=== PATIENT | male | born 1960 | race Caucasian/White ===

== ENCOUNTER 2019-06-03 10:30 | Outpatient (CLI) | payer OTHER, SELFPAY ==
[2019-06-03 11:13] LABS: Basophils Absolute Auto 0.1 K/mm3 (0.0-0.1); Basophils Percent Auto 0.7 % (0.2-1.2); Eosinophils Absolute Auto 0.4 K/mm3 (0-0.3); Eosinophils Percent Auto 4.4 % (0-4.4); Hemoglobin 15.8 g/dL (14.0-18.0); Immature Granulocyte Absolute 0.06 K/mm3 (0.00-0.031); Immature Granulocyte Percent A 0.7 % (0-0.5); Lymphocytes Absolute Auto 2.72 K/mm3 (0.9-3.2); Lymphocytes Percent Auto 30.5 % (18.3-44.2); Mean Corpuscular HGB Conc 32.9 g/dl (32-36); Mean Corpuscular Hemoglobin 30.7 pg (26-34); Mean Corpuscular Volume 93.4 fl (80-100); Monocytes Absolute Auto 0.7 K/mm3 (0.1-0.6); Monocytes Percent Auto 7.6 % (2.6-8.5); Neutrophils Percent Auto 56.1 % (45.5-73.1); Platelet Count Result 249 k/mm3 (150-375); Red Blood Count 5.14 M/mm3 (4.6-6.20); Red Cell Distribution Width 13.1 % (11.5-14.5); White Blood Count 8.9 K/mm3 (4.5-10.0)
[2019-06-03 11:26] LABS: Prothrombin Time 13.3 Seconds (11.1-14.7)
[2019-06-03 11:27] LABS: Alanine Aminotransferase 20 U/L (4-50); Albumin Level 4.4 g/dL (3.5-5.1); Alkaline Phosphatase 94 U/L (38-126); Aspartate Amino Transferase 24 U/L (17-59); Blood Urea Nitrogen 15 mg/dL (9-20); Calcium 8.9 mg/dL (8.4-10.2); Carbon Dioxide 29 mmol/L (22-30); Chloride 98 mmol/L (98-107); Estimated Glomerular Filt Rate > 60; Glucose 110 mg/dL (75-110); Sodium 138 mmol/L (137-145)
== END 2019-06-03 10:31 | disposition home or self-care (01) ==
PROVIDERS: Visit Provider Internal Medicine Cardiovascular Disease
DX: Z01.818 Encounter for other preprocedural examination (principal); I25.5 Ischemic cardiomyopathy; I25.118 Atherosclerotic heart disease of native coronary artery with other forms of angina pectoris
CPT/HCPCS: 36415; 80053; 85025; 85610

== ENCOUNTER 2019-09-24 10:43 | Outpatient (CLI) | payer OTHER, SELFPAY ==
[2019-09-24 12:13] LABS: Blood Urea Nitrogen 23 mg/dL (9-20); Carbon Dioxide 32 mmol/L (22-30); Chloride 94 mmol/L (98-107); Estimated Glomerular Filt Rate > 60; Glucose 147 mg/dL (75-110); Potassium 3.9 mmol/L (3.4-5.0); Sodium 133 mmol/L (137-145)
== END 2019-09-24 10:44 | disposition home or self-care (01) ==
PROVIDERS: Visit Provider Nurse Practitioner Adult Health
DX: I50.22 Chronic systolic (congestive) heart failure (principal)
CPT/HCPCS: 36415; 80048

== ENCOUNTER 2019-10-14 09:56 | Outpatient (CLI) | payer OTHER, SELFPAY ==
--- NOTE | ~2019-10-14 | CT_ITS ---
EXAMINATION:CT lung screening DATE: 10/14/2019 10:21 INDICATION: Personal history of tobacco dependence. Current smoker with 30 pack year history. TECHNIQUE: Computed tomography (CT) of the chest was performed without intravenous contrast. Automate d exposure control and iterative reconstruction technique were employed. The dose-length product (DLP ) was 280.81 mGy-cm. COMPARISON: Chest CT 03/19/2018 FINDINGS: There are widespread chronic groundglass opacities in the lungs with an upper lung predomin ance. The differential diagnosis includes chronic hypersensitivity pneumonitis and desquamative inter stitial pneumonia (DIP). There are a few bilateral pulmonary nodules measuring up to 5 mm in right up per lobe without change. A calcified left lung nodule is consistent with old granulomatous disease. N o pleural effusion. The heart size is normal. There are coronary artery calcifications. No pericardia l effusion. There is mild thoracic spondylosis. IMPRESSION: 1. Lung-RADS category 2: Benign appearance or behavior. Continue annual screening with noncontrast lo w-dose chest CT in 12 months. Reviewed, dictated and finalized at location A. IMPRESSION: 1. Lung-RADS category 2: Benign appearance or behavior. Continue annual screeni ng with noncontrast low-dose chest CT in 12 months.
== END 2019-10-14 09:57 | disposition home or self-care (01) ==
PROVIDERS: Visit Provider Nurse Practitioner Family
DX: Z12.2 Encounter for screening for malignant neoplasm of respiratory organs (principal); Z87.891 Personal history of nicotine dependence
CPT/HCPCS: G0297

== ENCOUNTER 2019-11-16 10:18 | Outpatient (CLI) | payer OTHER, SELFPAY ==
--- NOTE | ~2019-11-16 | CT_ITS ---
EXAMINATION:CT lung screening DATE: 11/16/2019 10:46 INDICATION: Personal history of tobacco dependence. Current smoker with 40 pack year history. TECHNIQUE: Computed tomography (CT) of the chest was performed without intravenous contrast. Automate d exposure control and iterative reconstruction technique were employed. The dose-length product (DLP ) was 378.21 mGy-cm. COMPARISON: Chest CT 10/14/2019 FINDINGS: Lung volumes are normal. Again seen are widespread groundglass opacities in the lungs with an upper lung predominance. The differential diagnosis includes chronic hypersensitivity pneumonitis and desquamative interstitial pneumonia (DIP). There are a few nodules in the upper lobes measuring u p to 4 mm in right upper lobe without change. No pleural effusion. The heart size is normal. There ar e coronary artery calcifications. There is a left chest pacer with leads in right atrium, right ventr icle, and coronary sinus. There is chronic mild mediastinal lymphadenopathy, likely reactive. There i s bilateral gynecomastia. There is mild thoracic spondylosis. IMPRESSION: 1. Lung-RADS category 2: Benign appearance or behavior. Continue annual screening with noncontrast lo w-dose chest CT in 12 months. Reviewed, dictated and finalized at location B. IMPRESSION: 1. Lung-RADS category 2: Benign appearance or behavior. Continue annual screeni ng with noncontrast low-dose chest CT in 12 months.
== END 2019-11-16 10:19 | disposition home or self-care (01) ==
PROVIDERS: PCP Internal Medicine Critical Care Medicine; Visit Provider Internal Medicine Critical Care Medicine
DX: Z12.2 Encounter for screening for malignant neoplasm of respiratory organs (principal); Z87.891 Personal history of nicotine dependence
CPT/HCPCS: G0297

== ENCOUNTER 2020-01-22 00:50 | Outpatient (CLI) | payer OTHER, SELFPAY ==
[2020-01-22 17:37] LABS: SARS-CoV-2 RNA PCR Negative
== END 2020-01-22 00:51 | disposition home or self-care (01) ==
LOC: ANHCOVIDDT 00:51
PROVIDERS: Visit Provider Internal Medicine Critical Care Medicine
DX: Z01.812 Encounter for preprocedural laboratory examination (principal); Z20.828 Contact with and (suspected) exposure to other viral communicable diseases
CPT/HCPCS: 87635; C9803; U0003

== ENCOUNTER 2020-01-25 11:03 | Outpatient (CLI) | payer OTHER, SELFPAY ==
--- NOTE | 2020-02-22 12:09 | WPDSLEEPSTUD ---
Sleep Study Date of Study: 01/25/20 Ordering Provider: Donta Gomez APRN Interpreting Physician: Kaylynn Louis MD Sleep Study Type: CPAP Titration Height: 1.6 m Weight: 101.605 kg Body Mass Index: 39.6 Neck Circumference: 43.18 cm [place]: 7 Reason for Sleep Study VITO Split night study on 06/24/2018 shows severe obstructive sleep apnea with AHI 68, multiple oxygen desaturations with inadequate titration with CPAP. Sleep History Apolinar Rawls is a 59-year-old male 63 in tall weighing 235 lb who presents for a CPAP titration. He has a history of COPD, cardiomyopathy, secondary pulmonary arterial hypertension with an RVSP of 75-80 mmHg. His EF is severely decreased 15-20%. He has a pacemaker / ICD. 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 He frequently snores which is loud enough the others complain about it. He occasionally awakens at night with heartburn, belching or coughing. He frequently awakens from sleep feeling short of breath. He rarely has trouble sleeping with a cold, rarely gasps for breath at night, rarely has breathing problems at night reported to him by others. He occasionally sweats excessively at night. He does not notice his heart pounding or beating irregularly at night. He does not fall asleep involuntarily or while driving. He does not have loss of muscle tone was strong emotion. He does not have daytime difficulties due to excessive sleepiness, and does not feel paralyzed on waking or falling asleep. He does not have vivid dreamlike scenes upon awakening or falling asleep. He has never for a to go to sleep. He does not have nightmares. He rarely remembers his dreams. He frequently has racing thoughts. He occasionally feels sad depressed and anxious. He occasionally has muscular tension. He rarely notices parts of his body jerking. He does not kick at night. He occasionally has crawling and aching feelings in his legs. He does not have leg pain during the night. He does not have morning jaw pain and does not grind his teeth during sleep. He occasionally is bothered by pain during the day, rarely is awakened by pain at night. He rarely wakes up feeling stiff in the morning. Does not wake up with sore achy muscles but he does occasionally wake up with pain in the neck and spine. He has dizziness and memory problems. He does not have a fixed bedtime. He wakes up 4-6 times during the night, staying awake for 30 minutes. While awake, he will sit on the side of the bed and try to get comfortable again. He usually wakes up around 6 or 7 in the morning. He denies taking naps. Habits: Tobacco a half pack per day currently smoking. Coffee 2 cups daily. Two cans of soda daily. No alcohol or recreational drugs. [facility] Past Medical History Medical History CAD (coronary artery disease) Cardiomyopathy Chronic respiratory failure with hypoxia COPD (chronic obstructive pulmonary disease) Hypersomnia Pulmonary arterial hypertension Tobacco abuse Family History Family History Mother Hypertension Diabetes mellitus Father Family history of congestive heart failure Diabetes mellitus Family history of Alzheimer's disease Social History Social History Smoking packs per day: 1 Smoking cigarettes per day: 20.0 Years smoked: 40 Smoking pack-years: 40.00 Smoking status: Current every day smoker Medications Home Medications Medication Instructions Recorded Confirmed Type aspirin 81 mg tablet,delayed 81 mg PO DAILY 09/10/19 09/29/19 History release atorvastatin 40 mg tablet 40 mg PO DAILY 09/10/19 09/29/19 History carvedilol 3.125 mg tablet 3.125 mg PO Q12H 09/10/19 09/29/19 History furosemide 40 mg tablet 40 mg PO QAM 09/10/19 09/29/19 History pantoprazole 40 mg ta
[2020-02-23 16:05] VITALS: BMI 39.6
== END 2020-01-25 11:04 ==
LOC: ANHCSM 03-29 11:03
PROVIDERS: Visit Provider Nurse Practitioner Family
DX: G47.33 Obstructive sleep apnea (adult) (pediatric) (principal)
CPT/HCPCS: 95811

== ENCOUNTER 2020-06-07 12:24 | Outpatient (CLI) | payer OTHER, SELFPAY ==
[2020-06-07 13:10] LABS: Alanine Aminotransferase 27 U/L (4-50); Albumin Level 4.5 g/dL (3.5-5.1); Alkaline Phosphatase 97 U/L (38-126); Anion Gap 6 mmol/L (8-16); Aspartate Amino Transferase 25 U/L (17-59); Bilirubin,Total 0.7 mg/dL (0.2-1.3); Blood Urea Nitrogen 16 mg/dL (9-20); Calcium 9.1 mg/dL (8.4-10.2); Carbon Dioxide 30 mmol/L (22-30); Chloride 102 mmol/L (98-107); Cholesterol 142 mg/dL (0-200); Estimated Glomerular Filt Rate > 60; Glucose 97 mg/dL (75-110); HDL Direct 34 mg/dL; Magnesium 1.9 mg/dL (1.6-2.3); Sodium 138 mmol/L (137-145); Triglycerides 166 mg/dL (<150)
[2020-06-07 13:21] LABS: LDL Cholesterol Direct 75 mg/dL
== END 2020-06-07 12:25 | disposition home or self-care (01) ==
PROVIDERS: Visit Provider Internal Medicine Cardiovascular Disease
DX: E78.5 Hyperlipidemia, unspecified (principal)
CPT/HCPCS: 36415; 80053; 80061; 83735

== ENCOUNTER 2020-06-28 06:38 | Outpatient (CLI) | payer OTHER, SELFPAY ==
--- NOTE | 2020-06-28 06:48 | ECHO_ITS ---
Patient Info Name: Apolinar Rawls Age: 59 years : 1960 Gender: Male Ht: 63 in Wt: 229 lbs BSA: 2.20 m2 HR: 73 bpm BP: 114 / 71 mmHg Heart Rhythm: Sinus Rhythm Exam Date: 06/28/2020 7:25 AM Exam Location: [facility] Patient Status: Outpatient Admit Date: 06/28/2020 Staff Ordering Physician: Rakan Paris DO Mat Maker: Margie Vicente RDCS Attending Provider: Rakan Paris DO Exam Type: CA echo dop color flow w con Study Info Indications I42.9 - Cardiomyopathy, unspecified Complete two-dimensional, color flow and Doppler transthoracic echocardiogram is performed with contrast to opacify the left ventricle and to improve the deliniation of the left ventricle endocardial borders. Contrast/Agitated Saline Contrast/Ag. Saline: Definity Amount: 40.00 ml Administered By: Norma Escobedo RN New IV Access: Right and Dorsum of Hand Site Condition: Site dressing applied and IV removed Summary 1. Left ventricular chamber dimension is severely enlarged. 2. Definity contrast administered improved wall motion interpretation. 3. Left ventricular systolic function is severely reduced, estimated at 15-20%. 4. The left ventricular diastolic function is grade I diastolic dysfunction. 5. E/e' 18 is elevated. 6. Linear artifact in right ventricle suggestive of catheter(s), pacemaker lead(s), or ICD lead(s). 7. Linear artifact in the right atrium suggestive of catheter(s), pacemaker lead(s), or ICD lead(s). 8. There is trace mitral valve regurgitation. Left Ventricle E/e' 18 is elevated. Definity contrast administered improved wall motion interpretation. Left ventricular chamber dimension is severely enlarged. Left ventricular systolic function is severely reduced, estimated at 15-20%. The left ventricular diastolic function is grade I diastolic dysfunction. Right Ventricle Linear artifact in right ventricle suggestive of catheter(s), pacemaker lead(s), or ICD lead(s). Right ventricular chamber dimension is normal. Right ventricular systolic function is normal. Left Atria Left atrial chamber dimension is normal. Right Atria Linear artifact in the right atrium suggestive of catheter(s), pacemaker lead(s), or ICD lead(s). Right atrial chamber dimension is normal. Aortic Valve The aortic valve is trileaflet. There is no aortic valve stenosis. There is no aortic valve regurgitation. Pulmonic Valve There is no pulmonic regurgitation. Mitral Valve There is no mitral valve stenosis. There is trace mitral valve regurgitation. Tricuspid Valve There is no tricuspid valve regurgitation. Pericardium/Pleural There is no pericardial effusion. Inferior Vena Cava Normal inferior vena cava with >50% collapse upon inspiration consistent with normal right atrial pressure, 5 mmHg. Aorta The aortic root size at the sinus of Valsalva is not well visualized. Left Ventricular Outflow Tract Name Value Normal LVOT 2D LVOT Diameter 1.89 cm LVOT Doppler LVOT Peak Gradient 3 mmHg LVOT Mean Gradient 1 mmHg
== END 2020-06-28 06:39 | disposition home or self-care (01) ==
PROVIDERS: Visit Provider Internal Medicine Cardiovascular Disease
DX: I42.9 Cardiomyopathy, unspecified (principal)
CPT/HCPCS: C8929

== ENCOUNTER 2020-06-28 16:02 | Outpatient (CLI) | payer OTHER, SELFPAY ==
[2020-06-28 08:45] VITALS: PULSE 84; O2SAT 86
[2020-06-28 08:50] VITALS: PULSE 86; O2SAT 88
[2020-06-28 08:55] VITALS: PULSE 85; O2SAT 90
[2020-06-28 09:00] VITALS: PULSE 98; O2SAT 88
[2020-06-28 09:05] VITALS: PULSE 100; O2SAT 90
[2020-06-28 09:20] VITALS: PULSE 84; O2SAT 90
== END 2020-06-28 16:03 | disposition home or self-care (01) ==
LOC: ANHPFT 08-24 16:05
PROVIDERS: Visit Provider Nurse Practitioner Family
DX: J44.9 Chronic obstructive pulmonary disease, unspecified (principal); R06.02 Shortness of breath
CPT/HCPCS: 94618

== ENCOUNTER 2020-11-16 08:21 | Outpatient (CLI) | payer OTHER, SELFPAY ==
--- NOTE | ~2020-11-16 | CT_ITS ---
EXAMINATION: CT lung screening DATE: 11/16/2020 08:46 INDICATION: Personal history of nicotine dependence, current smoker with 40 pack year history TECHNIQUE: Computed tomography (CT) of the chest was performed without intravenous contrast. The dose -length product (DLP) was 405.95 mGy-cm. Automated exposure control and iterative reconstruction tech [employer] were employed. COMPARISON: 11/16/2019 FINDINGS: There are scattered stable nodules in the upper lobes, the largest of which measures 4 mm i n the right upper lobe. There are stable groundglass opacities with an upper lobe predominance. Diffe rential is as previously described including chronic hypersensitivity pneumonitis desquamative inters titial pneumonia (DIP). There is no pleural effusion or pneumothorax. No new lung nodules are identif ied. No pathologically enlarged thoracic lymph nodes are identified. The heart size is normal. Chroni c mild mediastinal lymphadenopathy persists without change, likely reactive. A dual-lead pacemaker of the left chest wall ends with its leads right atrium and right ventricle. Calcified coronary artery atherosclerosis is noted. There is bilateral gynecomastia. IMPRESSION: 1. Lung-RADS category 2: Benign appearance or behavior. Continue annual screening with noncontrast lo w-dose chest CT in 12 months. Reviewed, dictated and finalized at location B. IMPRESSION: 1. Lung-RADS category 2: Benign appearance or behavior. Continue annual screeni ng with noncontrast low-dose chest CT in 12 months.
== END 2020-11-16 08:22 | disposition home or self-care (01) ==
PROVIDERS: Visit Provider Nurse Practitioner Family
DX: Z87.891 Personal history of nicotine dependence (principal)
CPT/HCPCS: 71271

== ENCOUNTER 2021-02-27 11:23 | Outpatient (CLI) | payer OTHER, SELFPAY | END 2021-02-27 11:24 | disposition home or self-care (01) | LOC: ANHLAB 11:25 | PROVIDERS: PCP Internal Medicine Cardiovascular Disease; Visit Provider Physician Assistant | DX: J84.9 Interstitial pulmonary disease, unspecified (principal) | CPT/HCPCS: 36415; 86331; 86606; 86609 ==

== ENCOUNTER 2021-06-15 07:48 | Outpatient (CLI) | payer OTHER, SELFPAY ==
[2021-06-15 08:52] LABS: Alanine Aminotransferase 22 U/L (4-50); Albumin Level 4.2 g/dL (3.5-5.1); Alkaline Phosphatase 77 U/L (38-126); Anion Gap 5 mmol/L (8-16); Aspartate Amino Transferase 26 U/L (17-59); Bilirubin,Total 1.1 mg/dL (0.2-1.3); Blood Urea Nitrogen 16 mg/dL (9-20); Calcium 8.5 mg/dL (8.4-10.2); Carbon Dioxide 31 mmol/L (22-30); Chloride 102 mmol/L (98-107); Cholesterol 118 mg/dL (0-200); Estimated Glomerular Filt Rate > 60; Glucose 129 mg/dL (65-110); HDL Direct 29 mg/dL; Magnesium 2.1 mg/dL (1.6-2.3); Potassium 4.1 mmol/L (3.4-5.0); Sodium 138 mmol/L (137-145); Triglycerides 117 mg/dL (<150)
--- NOTE | 2021-06-15 08:53 | ECHO_ITS ---
Patient Info Name: Apolinar Rawls Age: 60 years : 1960 Gender: Male Ht: 63 in Wt: 238 lbs BSA: 2.25 m2 HR: 68 bpm BP: 112 / 80 mmHg Technical Quality: Poor Exam Date: 06/15/2021 9:12 AM Exam Location: [facility] Patient Status: Outpatient Admit Date: 06/15/2021 Staff Ordering Physician: Rakan Paris DO Locomotive Firer: Thais Tejada RDCS Attending Provider: Rakan Paris DO Referring Physician: Wellington DOWNING; Exam Type: CA echo dop color flow w con Study Info Indications I42.9 - CARDIOMEGALY Complete two-dimensional, color flow and Doppler transthoracic echocardiogram is performed with contrast to opacify the left ventricle and to improve the deliniation of the left ventricle endocardial borders. Contrast/Agitated Saline Contrast/Ag. Saline: Definity Amount: 2.00 ml Administered By: Thais Tejada [facility] IV Access: Antecubital Space and Right Site Condition: IV removed Reason for Poor Study: patient body habitus Summary 1. Technically suboptimal study due to poor sonographic images. 2. Definity contrast administered improved wall motion interpretation. 3. Left ventricular chamber dimension is severely enlarged. 4. Left ventricular systolic function is severely reduced, estimated at 15-20%. 5. The left ventricular diastolic function is grade I diastolic dysfunction. 6. E/e' 15 is elevated. 7. Linear artifact in right ventricle suggestive of catheter(s), pacemaker lead(s), or ICD lead(s). 8. Linear artifact in the right atrium suggestive of catheter(s), pacemaker lead(s), or ICD lead(s). 9. There is trace mitral valve regurgitation. 10. There is trace tricuspid valve regurgitation. 11. No pulmonary hypertension, estimated pulmonary arterial systolic pressure is 38 mmHg. Left Ventricle E/e' 15 is elevated. Definity contrast administered improved wall motion interpretation. Technically suboptimal study due to poor sonographic images. Left ventricular chamber dimension is severely enlarged. Left ventricular systolic function is severely reduced, estimated at 15-20%. The left ventricular diastolic function is grade I diastolic dysfunction. Right Ventricle Linear artifact in right ventricle suggestive of catheter(s), pacemaker lead(s), or ICD lead(s). Right ventricular chamber dimension is normal. Right ventricular systolic function is normal. Left Atria Left atrial chamber dimension is normal. Right Atria Linear artifact in the right atrium suggestive of catheter(s), pacemaker lead(s), or ICD lead(s). Right atrial chamber dimension is normal. Aortic Valve The aortic valve is trileaflet. There is no aortic valve stenosis. There is no aortic valve regurgitation. Pulmonic Valve There is no pulmonic regurgitation. Mitral Valve There is no mitral valve stenosis. There is trace mitral valve regurgitation. Tricuspid Valve There is trace tricuspid valve regurgitation. No pulmonary hypertension, estimated pulmonary arterial systolic pressure is 38 mmHg. Pericardium/Pleural There is no pericardial effusion. Inferior Vena Cava Normal inferior vena cava with >50% collapse upon inspiration consistent with normal right atrial pressure, 5 mmHg. Aorta The aortic root size at the sinus of Valsalva is normal. Left Ventricular Outflow Tract Name Value Normal
[2021-06-15 09:03] LABS: LDL Cholesterol Direct 66 mg/dL
[2021-06-15] MEDS: PERFLUTREN LIPID MICROSPHERES 1.5 ML VIAL DILUTED TO 10 ML TOTAL VOLUME IV PUSH (09:50)
== END 2021-06-15 07:49 | disposition home or self-care (01) ==
LOC: ANHCARD 07:50
PROVIDERS: PCP Internal Medicine Cardiovascular Disease; Visit Provider Internal Medicine Cardiovascular Disease
DX: I42.9 Cardiomyopathy, unspecified (principal); E78.5 Hyperlipidemia, unspecified
CPT/HCPCS: 36415; 80053; 80061; 83735; C8929; Q9957

== ENCOUNTER 2021-07-11 06:33 | Outpatient (CLI) | payer OTHER, SELFPAY ==
[2021-07-11 07:00] VITALS: PULSE 70; O2SAT 88
[2021-07-11 07:05] VITALS: PULSE 77; O2SAT 92
[2021-07-11 07:10] VITALS: PULSE 98; O2SAT 86
[2021-07-11 07:15] VITALS: PULSE 88; O2SAT 90
[2021-07-11 07:20] VITALS: PULSE 78; O2SAT 92
== END 2021-07-11 06:34 | disposition home or self-care (01) ==
LOC: ANHPFT 06:35
PROVIDERS: PCP Internal Medicine Gastroenterology; Visit Provider Physician Assistant
DX: J96.11 Chronic respiratory failure with hypoxia (principal)
CPT/HCPCS: 94618

== ENCOUNTER 2021-12-21 09:23 | Outpatient (CLI) | payer OTHER, SELFPAY ==
--- NOTE | ~2021-12-21 | CT_ITS ---
EXAMINATION: CT lung screening DATE: 12/21/2021 09:36 INDICATION: Personal history nicotine dependence, current smoker with 40 pack year history TECHNIQUE: Computed tomography (CT) of the chest was performed without intravenous contrast. The dose -length product (DLP) was 267.30 mGy-cm. Automated exposure control and iterative reconstruction tech [employer] were employed. COMPARISON: 11/16/2020 FINDINGS: Again seen are scattered stable pulmonary nodules the lungs measuring up to 4 mm in the rig ht upper lobe. There are widespread groundglass opacities of the lungs without significant change. Di fferential is as previously described including chronic sensitivity pneumonitis and desquamative inte rstitial pneumonia. No pleural effusion or pneumothorax. There is moderate bilateral gynecomastia. Th e heart size is normal. There is calcified coronary artery atherosclerosis. Chronic mild mediastinal lymphadenopathy is unchanged and likely reactive. A dual-lead cardiac pacemaker of the left chest wal l ends with leads in expected locations. There is mild thoracic spondylosis. IMPRESSION: 1. Lung-RADS category 2: Benign appearance or behavior. Continue annual screening with noncontrast lo w-dose chest CT in 12 months. Reviewed, dictated and finalized at location B. IMPRESSION: 1. Lung-RADS category 2: Benign appearance or behavior. Continue annual screeni ng with noncontrast low-dose chest CT in 12 months.
== END 2021-12-21 09:24 | disposition home or self-care (01) ==
PROVIDERS: PCP Internal Medicine Gastroenterology; Visit Provider Physician Assistant
DX: Z12.2 Encounter for screening for malignant neoplasm of respiratory organs (principal); Z87.891 Personal history of nicotine dependence
CPT/HCPCS: 71271

== ENCOUNTER 2022-06-12 09:04 | Outpatient (CLI) | payer OTHER, SELFPAY ==
[2022-06-12 09:39] LABS: Alanine Aminotransferase 32 U/L (6-50); Albumin Level 4.4 g/dL (3.5-5.1); Alkaline Phosphatase 77 U/L (38-126); Anion Gap 5 mmol/L (8-16); Aspartate Amino Transferase 32 U/L (17-59); Bilirubin,Total 1.4 mg/dL (0.2-1.3); Blood Urea Nitrogen 14 mg/dL (9-20); Calcium 8.7 mg/dL (8.4-10.2); Carbon Dioxide 33 mmol/L (22-30); Chloride 99 mmol/L (98-107); Cholesterol 176 mg/dL (0-200); Glucose 104 mg/dL (65-110); HDL Direct 29 mg/dL; Magnesium 2.1 mg/dL (1.6-2.3); Potassium 4.8 mmol/L (3.4-5.0); Sodium 137 mmol/L (137-145); Triglycerides 126 mg/dL (<150)
[2022-06-12 09:43] LABS: Estimated Glomerular Filt Rate > 60
[2022-06-12 09:49] LABS: LDL Cholesterol Direct 121 mg/dL
--- NOTE | 2022-06-12 10:02 | ECHO_ITS ---
Patient Info Name: Apolinar Rawls Age: 61 years : 1960 Gender: Male Ht: 63 in Wt: 237 lbs BSA: 2.24 m2 HR: 80 bpm BP: 119 / 77 mmHg Technical Quality: Poor Exam Date: 06/12/2022 10:08 AM Exam Location: [facility] Patient Status: Outpatient Admit Date: 06/12/2022 Staff Ordering Physician: Rakan Paris DO Altitude Chamber Technician: Odin Pritchett RDCS, RT Attending Provider: Rakan Paris DO Referring Physician: Wellington DOWNING; Exam Type: CA echo dop color flow w con Study Info Indications I42.9 - Cardiomyopathy, unspecified Complete two-dimensional, color flow and Doppler transthoracic echocardiogram is performed with contrast to opacify the left ventricle and to improve the deliniation of the left ventricle endocardial borders. Summary 1. Linear artifact in right ventricle suggestive of catheter(s), pacemaker lead(s), or ICD lead(s). 2. Left ventricular chamber dimension is severely enlarged. 3. Definity contrast administered improved wall motion interpretation. 4. Left ventricular systolic function is severely reduced, estimated at 15-20%. 5. There is mildly increased left ventricular wall thickness. 6. The left ventricular diastolic function is grade I diastolic dysfunction. 7. E/e' 16 is elevated. 8. Left atrial chamber dimension is mildly enlarged. 9. Right atrial chamber dimension is mildly enlarged. 10. Linear artifact in the right atrium suggestive of catheter(s), pacemaker lead(s), or ICD lead(s). 11. Severe pulmonary hypertension, estimated pulmonary arterial systolic pressure is 68 mmHg. 12. Dilated inferior vena cava with >50% collapse upon inspiration consistent with elevated right atrial pressure, 10 mmHg. Left Ventricle E/e' 16 is elevated. Definity contrast administered improved wall motion interpretation. Left ventricular chamber dimension is severely enlarged. Left ventricular systolic function is severely reduced, estimated at 15-20%. There is mildly increased left ventricular wall thickness. The left ventricular diastolic function is grade I diastolic dysfunction. Right Ventricle Right ventricular systolic function is normal and with normal TAPSE 1.8 cm. Linear artifact in right ventricle suggestive of catheter(s), pacemaker lead(s), or ICD lead(s). Right ventricular chamber dimension is normal. Left Atria Left atrial chamber dimension is mildly enlarged. Right Atria Linear artifact in the right atrium suggestive of catheter(s), pacemaker lead(s), or ICD lead(s). Right atrial chamber dimension is mildly enlarged. Aortic Valve The aortic valve is probable trileaflet. There is no aortic valve stenosis. There is no aortic valve regurgitation. Pulmonic Valve There is no pulmonic regurgitation. Mitral Valve There is no mitral valve stenosis. There is no mitral valve regurgitation. Tricuspid Valve There is no tricuspid valve regurgitation. Severe pulmonary hypertension, estimated pulmonary arterial systolic pressure is 68 mmHg. Pericardium/Pleural There is no pericardial effusion. Inferior Vena Cava Dilated inferior vena cava with >50% collapse upon inspiration consistent with elevated right atrial pressure, 10 mmHg. Aorta The aortic root size at the sinus of Valsalva is normal. Left Ventricular Outflow Tract Name Value Normal LVOT 2D ----
[2022-06-12] MEDS: PERFLUTREN LIPID MICROSPHERES 1.5 ML VIAL DILUTED TO 10 ML TOTAL VOLUME IV PUSH (10:55)
== END 2022-06-12 09:05 | disposition home or self-care (01) ==
LOC: ANHCARD 09:05
PROVIDERS: PCP Internal Medicine Gastroenterology; Visit Provider Internal Medicine Cardiovascular Disease
DX: I42.9 Cardiomyopathy, unspecified (principal); E78.5 Hyperlipidemia, unspecified
CPT/HCPCS: 36415; 80053; 80061; 83735; C8929; Q9957

== ENCOUNTER 2022-12-26 07:37 | Outpatient (CLI) | payer OTHER, SELFPAY ==
--- NOTE | ~2022-12-26 | CT_ITS ---
CT Scan of the Chest without Contrast: Clinical Indication: Lung cancer screening, personal history of nicotine dependence Technique: Contiguous sections were acquired throughout the chest without intravenous contrast. Dose reduction technique was used on this scan by utilizing automated exposure control and iterative recon struction technique. The dose-length product (DLP) was 293.01 mGy-cm. COMPARISON: 12/21/2021, 11/16/2020 Findings: Numerous mildly prominent mediastinal lymph nodes are similar to prior exam.. No aortic aneurysm.. Co ronary artery calcifications are present. Pacemaker device present. There is no evidence of pleural or pericardial effusion. Stable calcified granuloma in the anteromedial left upper lobe. Stable extensive groundglass pulmonar y disease with mild interstitial thickening. Images through the upper abdomen reveal no abnormalities. Impression: Lung RADS 2: Benign appearance where [address] advised. Stable extensive ground glass pulmonary disease and minimal interstitial thickening, consistent with presumed chronic interstitial disease. Reviewed, dictated and finalized at [facility]. Impression: Lung RADS 2: Benign appearance where [address] advised. Stable extensive ground glass pulmonary disease and minimal interstitial thicke sil, consistent with presumed chronic interstitial disease.
== END 2022-12-26 07:38 | disposition home or self-care (01) ==
LOC: ANHIMG 07:43
PROVIDERS: PCP Internal Medicine Gastroenterology; Visit Provider Nurse Practitioner Family
DX: Z12.2 Encounter for screening for malignant neoplasm of respiratory organs (principal); Z87.891 Personal history of nicotine dependence
CPT/HCPCS: 71271

== ENCOUNTER 2023-05-14 06:49 | Outpatient (CLI) | payer OTHER, SELFPAY ==
--- NOTE | 2023-05-14 07:06 | ECHO_ITS ---
Patient Info Name: Apolinar Rawls Age: 62 years : 1960 Gender: Male Ht: 63 in Wt: 220 lbs BSA: 2.16 m2 HR: 74 bpm BP: 125 / 83 mmHg Technical Quality: Fair Exam Date: 05/14/2023 7:16 AM Exam Location: [facility] Patient Status: Outpatient Admit Date: 05/14/2023 Staff Ordering Physician: Rakan Paris DO Synchronous Motor Assembler: Bina Alexander RDCS Attending Provider: Rakan Paris DO Referring Physician: Wellington DOWNING; Exam Type: CA echo dop color flow w con Study Info Indications I42.9 - Cardiomyopathy, unspecified Complete two-dimensional, color flow and Doppler transthoracic echocardiogram is performed with contrast to opacify the left ventricle and to improve the deliniation of the left ventricle endocardial borders. Contrast/Agitated Saline Contrast/Ag. Saline: Definity Amount: 2.00 ml Administered By: Bina Alexander RDCS Existing IV Access: No New IV Access: Left Site Condition: IV removed Summary 1. Definity contrast administered improved wall motion interpretation. 2. Left ventricular chamber dimension is severely enlarged. 3. Left ventricular systolic function is severely globally reduced, estimated at 15-20%. 4. The left ventricular diastolic function is grade I diastolic dysfunction. 5. E/e' 26 is significantly elevated. 6. Linear artifact in right ventricle suggestive of catheter(s), pacemaker lead(s), or ICD lead(s). 7. Right ventricular systolic function is reduced and with abnormal TAPSE 1.5 cm. 8. Left atrial chamber dimension is mildly enlarged. 9. Right atrial chamber dimension is mildly enlarged. 10. Linear artifact in the right atrium suggestive of catheter(s), pacemaker lead(s), or ICD lead(s). 11. There is mild aortic valve sclerosis. 12. No pulmonary hypertension, estimated pulmonary arterial systolic pressure is 21 mmHg. Left Ventricle E/e' 26 is significantly elevated. Definity contrast administered improved wall motion interpretation. Left ventricular chamber dimension is severely enlarged. Left ventricular systolic function is severely globally reduced, estimated at 15-20%. The left ventricular diastolic function is grade I diastolic dysfunction. Right Ventricle Linear artifact in right ventricle suggestive of catheter(s), pacemaker lead(s), or ICD lead(s). Right ventricular chamber dimension is normal. Right ventricular systolic function is reduced and with abnormal TAPSE 1.5 cm. Left Atria Left atrial chamber dimension is mildly enlarged. Right Atria Linear artifact in the right atrium suggestive of catheter(s), pacemaker lead(s), or ICD lead(s). Right atrial chamber dimension is mildly enlarged. Aortic Valve The aortic valve is trileaflet. There is mild aortic valve sclerosis. There is no aortic valve stenosis. There is no aortic valve regurgitation. Pulmonic Valve There is no pulmonic regurgitation. Mitral Valve There is no mitral valve stenosis. There is no mitral valve regurgitation. Tricuspid Valve There is no tricuspid valve regurgitation. No pulmonary hypertension, estimated pulmonary arterial systolic pressure is 21 mmHg. Pericardium/Pleural There is no pericardial effusion. Inferior Vena Cava Normal inferior vena cava with >50% collapse upon inspiration consistent with normal right atrial pressure, 5 mmHg. Aorta The aortic root size at the sinus of Valsalva is normal. Left Ventricular Outflow Tract Name Value Normal
[2023-05-14] MEDS: PERFLUTREN LIPID MICROSPHERES 1.5 ML VIAL DILUTED TO 10 ML TOTAL VOLUME IV PUSH (08:15)
--- NOTE | 2023-05-14 08:30 | IVDEFINITY ---
Prior to administration of IV Definity the patient was educated on the risks and benefits of the imaging enhancing agent including potential adverse side effects. The patient verbalized understanding. Allergies were verified. No exclusion criteria were identified and at least one of the following inclusion criteria were met: 1) physician request, 2) patient technically difficult to image (per the [place] [employer] Echocardi[employer] guidelines of two or more segments not discernable within the apical view), or 3) questionable left ventricular function. ?
[2023-05-14 09:33] LABS: Alanine Aminotransferase 34 U/L (6-50); Albumin Level 4.3 g/dL (3.5-5.1); Alkaline Phosphatase 77 U/L (38-126); Anion Gap 8 mmol/L (8-16); Aspartate Amino Transferase 37 U/L (17-59); Bilirubin,Total 1.4 mg/dL (0.2-1.3); Blood Urea Nitrogen 17 mg/dL (9-20); Calcium 8.8 mg/dL (8.4-10.2); Carbon Dioxide 30 mmol/L (22-30); Chloride 100 mmol/L (98-107); Cholesterol 140 mg/dL (0-200); Estimated Glomerular Filt Rate > 60; Glucose 102 mg/dL (65-110); HDL Direct 33 mg/dL; Magnesium 2.2 mg/dL (1.6-2.3); Potassium 4.1 mmol/L (3.4-5.0); Sodium 138 mmol/L (137-145); Triglycerides 100 mg/dL (<150)
[2023-05-14 09:41] LABS: LDL Cholesterol Direct 93 mg/dL
== END 2023-05-14 06:50 | disposition home or self-care (01) ==
PROVIDERS: PCP Internal Medicine Gastroenterology; Visit Provider Internal Medicine Cardiovascular Disease
DX: I42.9 Cardiomyopathy, unspecified (principal); E78.5 Hyperlipidemia, unspecified
CPT/HCPCS: 36415; 80053; 80061; 83735; C8929; Q9957

== ENCOUNTER 2023-12-04 06:58 | Outpatient (CLI) | payer OTHER, SELFPAY ==
--- NOTE | ~2023-12-04 | CT_ITS ---
EXAMINATION:CT chest high resolution wo co DATE: 12/04/2023 07:18 INDICATION: Interstitial pulmonary disease, unspecified. TECHNIQUE: Computed tomography (CT) of the chest was performed without intravenous contrast. Automate d exposure control and iterative reconstruction technique were employed. The dose-length product (DLP ) was 552.56 mGy-cm. COMPARISON: Chest CT 12/26/2022 FINDINGS: There are chronic widespread groundglass opacities in the lungs associated with relatively mild septal thickening with relative sparing of the lung bases. There is mild emphysema. There are fe w chronic nodules in the lungs measuring up to 4 mm, likely benign. No pleural effusion. There is lef t ventricular enlargement of the heart. There are coronary artery calcifications. No pericardial effu monroe. There is a left chest pacer with leads in right atrium, right ventricle, and coronary sinus. Th ere is bilateral gynecomastia. There is severe thoracic spondylosis. IMPRESSION: 1. Stable diffuse lung disease, likely a combination of mild emphysema and chronic interstitial disea se in a pattern of chronic hypersensitivity pneumonitis versus desquamative interstitial pneumonia (D IP). Reviewed, dictated and finalized at location A. IMPRESSION: 1. Stable diffuse lung disease, likely a combination of mild emphysema and materials and corrosion engineer kushal interstitial disease in a pattern of chronic hypersensitivity pneumonitis v ersus desquamative interstitial pneumonia (DIP).
== END 2023-12-04 06:59 | disposition home or self-care (01) ==
LOC: ANHIMG 06:59
PROVIDERS: PCP Internal Medicine Gastroenterology; Visit Provider Nurse Practitioner Family
DX: J84.9 Interstitial pulmonary disease, unspecified (principal)
CPT/HCPCS: 71250

== ENCOUNTER 2024-06-03 13:39 | Outpatient (CLI) | payer OTHER, SELFPAY ==
[2024-06-03 14:09] LABS: Alanine Aminotransferase 25 U/L (6-50); Albumin Level 4.3 g/dL (3.5-5.1); Alkaline Phosphatase 68 U/L (38-126); Anion Gap 7 mmol/L (4-12); Aspartate Amino Transferase 29 U/L (17-59); Bilirubin,Total 1.1 mg/dL (0.2-1.3); Blood Urea Nitrogen 23 mg/dL (9-20); Calcium 9.3 mg/dL (8.4-10.2); Carbon Dioxide 31 mmol/L (22-30); Chloride 100 mmol/L (98-107); Cholesterol 161 mg/dL (0-200); Estimated Glomerular Filt Rate > 60; Glucose 102 mg/dL (65-110); HDL Direct 36 mg/dL; Magnesium 2.2 mg/dL (1.6-2.3); Potassium 4.4 mmol/L (3.4-5.0); Sodium 138 mmol/L (137-145); Triglycerides 206 mg/dL (<150)
[2024-06-03 14:21] LABS: LDL Cholesterol Direct 93 mg/dL
== END 2024-06-03 13:40 | disposition home or self-care (01) ==
LOC: ANHCARD 13:40
PROVIDERS: PCP Internal Medicine Gastroenterology; Visit Provider Internal Medicine Cardiovascular Disease
DX: I35.8 Other nonrheumatic aortic valve disorders (principal); I08.1 Rheumatic disorders of both mitral and tricuspid valves; I27.20 Pulmonary hypertension, unspecified; E78.5 Hyperlipidemia, unspecified
CPT/HCPCS: 36415; 80053; 80061; 83735; 93306

== ENCOUNTER 2024-07-01 07:25 | Outpatient (CLI) | payer OTHER, SELFPAY ==
--- OUTSIDE RECORDS SUMMARY | 2024-07-01 07:30 | XMS_ITS | Clinical Summary ---
Author Organization [facility] [address] Address [address] [place] [address] Care Team Providers Care Glove Operator Name Role Phone No, Physician Primary Care Provider [phone] Allergies Active Allergy Reactions Criticality Noted Date Comments Amoxicillin Rash Medium 04/10/2018 Penicillins Rash Medium 04/10/2018 Medications aspirin 81 mg tablet Take 1 tablet (81 mg total) by mouth every morning Active guaiFENesin (ROBITUSSIN) syrup 100 mg/5 mL Take 10 mL (200 mg total) by mouth 3 (three) times a day as needed for cough Active metOLazone (ZAROXOLYN) 2.5 mg tabletIndicatio ns:Chronic systolic congestive heart failure (HCC) TAKE 1 TABLET BY MOUTH EVERY OTHER DAY . TAKE 1 HOUR BEFORE FUROSEMIDE 15 tablet 0 Active Additional Information Patient not taking.Reported on 04/22/2024 albuterol HFA (PROVENTIL HFA,VENTOLIN HFA,PROAIR HFA) 90 mcg/actuation inhaler INHALE 1 PUFF EVERY 4 6 HOURS NEEDED FOR SHORTNESS OF BREATH OR WHEEZE 0 Active Symbicort 160-4.5 mcg/actuation inhaler INHALE 2 PUFFS BY MOUTH EVERY 12 HOURS. RINSE AND SPIT AFTER EACH USE 0 Active nicotine (NICODERM CQ) [address] 1 patch on the skin daily Active oxygenIndicatio ns:Dyspnea Administer 3 L/min into each nostril continuously Active atorvastatin (LIPITOR) 40 mg tablet TAKE 1 TABLET BY MOUTH EVERY DAY 90 tablet 1 Active lisinopriL (PRINIVIL,ZESTR IL) 2.5 mg tablet Take 1 tablet (2.5 mg total) by mouth every morning 30 tablet 3 5 Active carvediloL (COREG) 6.25 mg tablet Take 1 tablet (6.25 mg total) by mouth 2 (two) times a day with meals 60 tablet 3 5 Active spironolactone (ALDACTONE) 25 mg tablet Take 1 tablet (25 mg total) by mouth daily 90 tablet 1 5 Active furosemide (LASIX) 40 mg tabletIndicatio ns:Chronic systolic (congestive) heart failure (HCC) TAKE 1 TABLET BY MOUTH TWICE A DAY 60 tablet 11 5 Active Active Problems Problem Noted Date Diagnosed Date Encounter for fitting or adj ustment of automatic implantable cardioverter-defibrillator 04/29/2023 Presence of cardiac resynchr onization therapy defibrillator (FLIGHT ENGINEER INSTRUCTOR-D) 11/01/2019 Assessment & Plan (11/02/2019 12:55 PM CDT): Underwent FLIGHT ENGINEER INSTRUCTOR-D placement 10/31 given ongoing cardiomyopathy with EF <35%, LBBB -CXR PA/lateral in AM -Hold lovenox/heparin -Vancomycin for prophylaxis while admitted per EP -Device interrogated this AM -Post defibrillator precautions Chronic systolic congestive heart failure 2019 Overview (10/14/2019): Added automatically from request for surgery [id number] Assessment & Plan (11/02/2019 12:53 PM CDT): F/B cardiology Dr Perdomo. EF 20-25% on catheterization 07/2019. 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; working on scheduling repeat sleep study Coronary artery disease of n ative artery of [place] heart with stable angina pectoris 04/10/2018 Assessment & Plan (11/01/2019 10:13 PM CDT): [facility] 07/08/19: LAD/RCA/LCx disease; recommended medical management at the time, possible consideration of viability study for LAD PCI in the future -Continue asa, atorvastatin, coreg Pulmonary emphysema 04/10/2018 Assessment & Plan (11/01/2019 10:14 PM CDT): On chronic home oxygen, 2L at rest/4L with exertion -Continue symbicort->Breo Ellipta, PRN albuterol, PRN guaifenesin -Smoking cessation Hyperlipidemia LDL goal <70 04/10/2018 Assessment & Plan (11/01/2019 10:14 PM CDT): Continue atorvastatin Tobacco abuse 04/10/2018 Assessment & Plan (11/01/2019 10:14 PM CDT): Encourage cessation Nicotine patch Chronic back pain 04/10/2018 Cardiomyopathy, ischemic 04/10/2018 Pulmonary hypertension 04/10/2018 Encounters Date Type Department Care Team Description 05/27/2024 Orders Only [facility] Cardiology [facility] Medical Office Building [address] [place] [address] Cj Ellis MD 04/29/2024 Telephone [facility] Cardiology [address] [place] [address] Advanced Medicine 8th [place] [address] [place] [address] Cj Ellis MD 04/22/2024 8:30 AM BUSINESS SYSTEMS DEVELOPER Office Visit [facility] Cardiology [address] [place] [address] Advanced Medicine 8th [place] [address] [place] [address] Cj Ellis MD LBBB (left bundle branch block) (Primary Dx); Chronic systolic (congestive) heart failure (HCC); Cardiomyopathy, ischemic; Presence of cardiac resynchronization therapy defibrillator (FLIGHT ENGINEER INSTRUCTOR-D) 04/22/2024 8:00 AM BUSINESS SYSTEMS DEVELOPER Ancillary Procedure [facility] Cardiology [address] [facility] 8th [place] [address] [place] [address] Ischemic cardiomyopathy (Primary Dx); LBBB (left bundle branch block); Encounter for fitting or adjustment of automatic implantable cardioverter-defibrillat or from Last 3 Months Surgical History Surgery Date Site/Laterality Comments CARDIAC CATHETERIZATION 07/07/2019 - 08/05/2019 NO PAST SURGERIES Medical History Medical History Date Comments Sleep apnea Hypertension COPD (chronic obstructive pulmonary disease) (HC C) GERD (gastroesophageal reflux disease) Coronary artery disease Umbilical hernia CHF (congestive heart failure) (HCC) Hyperlipidemia Pulmonary hypertension (HCC) Ischemic cardiomyopathy Edema of both lower extremities Requires supplemental oxygen 2L- 3L Syncope, tussive Depression Arthritis Family History Medical History Relation Name Comments Coronary artery disease Brother Diabetes Brother Heart disease Brother Coronary artery disease Father Diabetes Father Heart attack Father Heart disease Father Alzheimer's disease Mother Diabetes Mother Anesthesia problems Neg Hx Relation Name Status Comments Brother Alive Father Mother Social History Tobacco Use Types Packs/Day Years Used Date Smoking Tobacco: Every Day Cigarettes 0.5 40 Smokeless Tobacco: Never Tobacco Cessation:Ready to Q uit: Yes; Counseling Given: Yes Alcohol Use Standard Drinks/Week Comments No 0 (1 standard drink = 0.6 oz pur e alcohol) PHQ-2 Answer Date Recorded PHQ-2 Total Score (If total score is 3 or more points, staff should administer the PHQ-9) 0 09/08/2019 Sex and Gender Information Value Date Recorded Sex Assigned at Not on file Legal Sex Male 12:55 PM BUSINESS SYSTEMS DEVELOPER Gender Identity Not on file Sexual Orientation Not on file Obstetrics History Last Filed Vital Signs Vital Sign Reading Time Taken Comments Blood Pressure 120/76 04/22/2024 8:03 AM BUSINESS SYSTEMS DEVELOPER Pulse 67 04/22/2024 8:03 AM BUSINESS SYSTEMS DEVELOPER Temperature 36.9 C (98.5 F) 02/17/2020 2:33 PM BUSINESS SYSTEMS DEVELOPER Respiratory Rate 18 11/02/2019 10:10 AM CDT Oxygen Saturation 88% 04/22/2024 8:03 AM BUSINESS SYSTEMS DEVELOPER Inhaled Oxygen Concentration - - Weight 97.1 kg (214 lb) 04/22/2024 8:03 AM BUSINESS SYSTEMS DEVELOPER Height 160 cm (5' 3 ) 04/22/2024 8:03 AM BUSINESS SYSTEMS DEVELOPER Body Mass Index 37.91 04/22/2024 8:03 AM BUSINESS SYSTEMS DEVELOPER Plan of Treatment Health Maintenance Due Date Last Done Comments Colon Cancer Screening-Colonoscopy 1960 Hepatitis C Screening 1960 Prostate Cancer Screening-PSA 1960 DTaP/Tdap/Td Vaccine (1 - Tdap) 11/25/1971 Hepatitis B Screening 1978 Regular Well Visit/Exam 18-64 1978 Pneumococcal vaccine <65 (1 of 2 - PCV) 11/25/1979 Lung Cancer Screening 2010 Zoster Vaccine (1 of 2) 2010 Depression Screening 09/07/2020 09/08/2019 Influenza Vaccine (#1) 2023 Medical Devices Implanted Type Area Spa Concierge Device Identifier Shelf Expiration Date Model / Serial / Lot [employer] [id number] Quadra Assura Mp [id number] Df-4 Is4 Is-1 Connector [id number] - [id number] - [id number] Implanted:Qty: 1 on 11/01/2019 by Cj Ellis MD at [facility] ICD [employer] 11/04/2021 [id number] / [id number] / Description:generator [employer] 7122q/65 Durata 6.8fr 65cm True Bipolar Active Fixation Extendable 1 Coil - [id number] - [id number] Implanted:Qty: 1 on 11/01/2019 by Cj Ellis MD at [facility] Lead [employer] 05/07/2022 7122Q/65 / [id number] / Description:RV lead [employer] 8tc/52 Tendril Sts 6fr 52cm Is-1 Connector Active Fixation Bipolar Soft - [id number] - [id number] Implanted:Qty: 1 on 11/01/2019 by Cj Ellis MD at [facility] Lead [employer] 10/04/2022 2088TC/52 / [id number] / Description:atrial lead [employer] 1458q/86 Quartet 5fr [id number] 4 Electrode Is-4 Connector Steerable Tip - [id number] - [id number] Implanted:Qty: 1 on 11/01/2019 by Cj Ellis MD at [facility] Lead [employer] 09/04/2022 1458Q/86 / [id number] / Description:LV lead Daig Kylee [id number] Device Closure Angio-Seal Vip Bondek-Plus Polyglyd L70 Cm Od6 Fr Odsec.035 In Vascular - [id number] Implanted:Qty: 1 on 07/08/2019 by Ariel Billings MD at [facility] Daig Kyle[employer] [id number] / / Procedures Procedure Name Priority Date/Time Associated Diagnosis Comments DEVICE CHECK - REMOTE Routine 05/27/2024 4:00 AM BUSINESS SYSTEMS DEVELOPER DEVICE CHECK - IN OFFICE Routine 04/22/2024 7:56 AM BUSINESS SYSTEMS DEVELOPER LBBB (left bundle branch block) Encounter for fitting or adjustment of automatic implantable cardioverter-defibri llator from Last 3 Months Results * DEVICE CHECK - REMOTE (05/27/2024 4:00 AM BUSINESS SYSTEMS DEVELOPER) Anatomical Region Laterality Modality Other 05/27/2024 4:00 AM BUSINESS SYSTEMS DEVELOPER Narrative 05/31/2024 7:23 PM BUSINESS SYSTEMS DEVELOPER Interpretation Summary: Battery and Leads (BL) Normal parameters noted on battery and lead(s) --- 3.4 years remaining (this is an estimate based on prior usage) Presenting Rhythm (NM) Atrial Sensing-BiVentricular Pacing (-BiVP) --- rate 80 Arrhythmic events (AE) No new arrhythmic events in monitoring period Transmission Information (TI) Device Summary Report Procedure Note Cj Ellis MD - 05/31/2024 Interpretation Summary: Battery and Leads (BL) Normal parameters noted on battery and lead(s) --- 3.4 years remaining(this is an estimate based on prior usage) Presenting Rhythm (NM) Atrial Sensing-BiVentricular Pacing (-BiVP) --- rate 80 Arrhythmic events (AE) No new arrhythmic events in monitoring period Transmission Information (TI) Device Summary Report us Cj Ellis MD [facility] C[facility] PRO CEDURES Final Result * DEVICE CHECK - IN OFFICE (04/22/2024 7:56 AM BUSINESS SYSTEMS DEVELOPER) Anatomical Region Laterality Modality Other 04/22/2024 2:00 AM BUSINESS SYSTEMS DEVELOPER Narrative 05/24/2024 11:16 AM BUSINESS SYSTEMS DEVELOPER Interpretation Summary: Battery and Leads (BL) Normal parameters noted on battery and lead(s) --- Estimated battery longevity 3.5 years. Charge time 9.8 seconds. Presenting Rhythm (NM) Atrial Sensing-BiVentricular Pacing (-BiVP) --- /BiVP 77 bpm. Underlying /VS NSR 78 bpm Transmission Information (TI) Device Summary Report Procedure Note Cj Ellis MD - 05/24/2024 Interpretation Summary: Battery and Leads (BL) Normal parameters noted on battery and lead(s) --- Estimated batterylongevity 3.5 years. Charge time 9.8 seconds. Presenting Rhythm (NM) Atrial Sensing-BiVentricular Pacing (-BiVP) --- /BiVP 77 bpm.Underlying /VS NSR 78 bpm Transmission Information (TI) Device Summary Report us Cj Ellis MD CV CARDIAC SERVICES PRO CEDURES Final Result from Last 3 Months Insurance [facility] Advance Directives For more information, please contact: [phone] * Full Code (Latest Code Status on File) Date Activated Date Inactivated Comments 11/01/2019 9:06 PM 11/02/2019 6:56 PM Care Teams Glove Operator Relationship Specialty Start Date End Date No, Physician PCP - General 09/27/19
--- OUTSIDE RECORDS SUMMARY | 2024-07-01 07:30 | XMS_ITS | Encounter Summary ---
Author Organization [facility] Address [address] [place] [address] Phone Care Team Providers Care Legal Counsel Name Role Phone No, Physician Primary Care Provider [phone] Encounter Details Date Type Department Care Team (Late st Contact Info) Description 06/29/2020 Telephone [facility] Cardiology [address] [facility] Advanced Medicine 8th [place] [address] [place] [address] Cj Ellis MD [address] [facility] [address] [place] [address] Social History Tobacco Use Types Packs/Day Years Used Date Smoking Tobacco: Every Day Cigarettes 0.5 40 Smokeless Tobacco: Never Alcohol Use Standard Drinks/Week Comments No 0 (1 standard drink = 0.6 oz pur e alcohol) PHQ-2 Answer Date Recorded PHQ-2 Total Score (If total score is 3 or more points, staff should administer the PHQ-9) 0 09/08/2019 Sex and Gender Information Value Date Recorded Sex Assigned at Not on file Legal 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
--- OUTSIDE RECORDS SUMMARY | 2024-07-01 07:30 | XMS_ITS | Referral Summary ---
Author Organization [facility] [address] Address [address] [place] [address] Care Team Providers Care Trailers And Motor Homes Salesperson Name Role Phone No, Physician Primary Care Provider [phone] Encounters Date Type Department Care Team Description 05/27/2024 Orders Only [facility] Cardiology [address] [facility] Medical Office Building [address] [place] [address] Cj Ellis MD 04/29/2024 Telephone [facility] Cardiology [address] [place] [address] 8th [place] [address] [place] [address] Cj Ellis MD 04/22/2024 8:30 AM ENTRANCE GUARD Office Visit [facility] Cardiology [address] [place] [address] [place] [address] [place] [address] Cj Ellis MD LBBB (left bundle branch block) (Primary Dx); Chronic systolic (congestive) heart failure (HCC); Cardiomyopathy, ischemic; Presence of cardiac resynchronization therapy defibrillator (SUPERVISOR FORMING DEPARTMENT-D) 04/22/2024 8:00 AM ENTRANCE GUARD Ancillary Procedure [facility] Cardiology [address] [place] [address] 8th [place] [address] [place] [address] Ischemic cardiomyopathy (Primary Dx); LBBB (left bundle branch block); Encounter for fitting or adjustment of automatic implantable cardioverter-defibrillat or from Last 3 Months Allergies Active Allergy Reactions Criticality Noted Date [...] Presence of cardiac resynchr onization therapy defibrillator (SUPERVISOR FORMING DEPARTMENT-D) 11/01/2019 Assessment & Plan (11/02/2019 12:55 PM CDT): Underwent SUPERVISOR FORMING DEPARTMENT-D placement 10/31 given ongoing cardiomyopathy with EF <35%, LBBB -CXR PA/lateral in AM -Hold lovenox/heparin -Vancomycin for prophylaxis while admitted per EP -Device interrogated this AM -Post defibrillator precautions Chronic systolic congestive heart failure 2019 Overview (10/14/2019): Added automatically from request for surgery [id number] Assessment & Plan (11/02/2019 12:53 PM CDT): [...] (06/07/2019): Added automatically from request for surgery [id number] VITO (obstructive sleep apnea) 05/25/2019 Assessment & Plan (11/01/2019 10:43 PM CDT): Supposed to be on nocturnal cpap but has not been able to obtain yet 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; working on scheduling repeat sleep study Coronary artery disease of n ative artery of [place] heart with stable angina pectoris 04/10/2018 Assessment & Plan (11/01/2019 10:13 PM CDT): [facility] 07/08/19: LAD/RCA/LCx disease; recommended medical management [...] 04/10/2018 Cardiomyopathy, ischemic 04/10/2018 Pulmonary hypertension 04/10/2018 Social History Tobacco Use Types Packs/Day Years [...] on file Legal Sex Male 12:55 PM ENTRANCE GUARD Gender Identity Not on file Sexual Orientation Not on file Last Filed Vital Signs Vital Sign Reading Time Taken Comments Blood Pressure 120/76 04/22/2024 8:03 AM ENTRANCE GUARD Pulse 67 04/22/2024 8:03 AM ENTRANCE GUARD Temperature 36.9 C (98.5 F) 02/17/2020 2:33 PM ENTRANCE GUARD Respiratory Rate 18 11/02/2019 10:10 AM CDT Oxygen Saturation 88% 04/22/2024 8:03 AM ENTRANCE GUARD Inhaled Oxygen Concentration - - Weight 97.1 kg (214 lb) 04/22/2024 8:03 AM ENTRANCE GUARD Height 160 cm (5' 3 ) 04/22/2024 8:03 AM ENTRANCE GUARD Body Mass Index 37.91 04/22/2024 8:03 AM ENTRANCE GUARD Plan of Treatment Not on file Medical Devices Implanted Type Area Forestry Tree Pruner Device Identifier Shelf Expiration Date Model / Serial / Lot [employer] [id number] Quadra Assura Mp [id number] Df-4 Is4 Is-1 Connector [id number] 40j - [id number] - [id number] Implanted:Qty: 1 on 11/01/2019 by Cj Ellis MD at [facility] ICD [employer] 11/04/2021 [id number] / [id number] / Description:generator [employer] 7122q/65 Durata 6.8fr 65cm True Bipolar Active Fixation Extendable 1 Coil - [id number] - [id number] Implanted:Qty: 1 on 11/01/2019 by Cj Ellis MD at [facility] Lead [employer] 05/07/2022 7122Q/65 / [id number] / Description:RV lead [employer] 2087tc/52 Tendril Sts 6fr 52cm Is-1 Connector Active Fixation Bipolar Soft - [id number] - [id number] Implanted:Qty: 1 on 11/01/2019 by Cj Ellis MD at [facility] Lead [employer] 10/04/20228TC/52 / [id number] / Description:atrial lead [employer] 1458q/86 Quartet 5fr [id number] 4 Electrode Is-4 Connector Steerable Tip - [id number] - [id number] Implanted:Qty: 1 on 11/01/2019 by Cj Ellis MD at [facility] Lead [employer] 09/04/2022 1458Q/86 / [id number] / Description:LV lead [employer] Kylee [id number] Device Closure Angio-Seal Vip Bondek-Plus Polyglyd L70 Cm Od6 Fr Odsec.035 In Vascular - [id number] Implanted:Qty: 1 on 07/08/2019 by Ariel Billings MD at [facility] [employer] [id number] / / Procedures Procedure Name Priority Date/Time Associated Diagnosis Comments DEVICE CHECK - REMOTE Routine 05/27/2024 4:00 AM ENTRANCE GUARD DEVICE CHECK - IN OFFICE Routine 04/22/2024 7:56 AM ENTRANCE GUARD LBBB (left bundle branch block) Encounter for fitting or adjustment of automatic implantable cardioverter-defibri llator from Last 3 Months Results * DEVICE CHECK - REMOTE (05/27/2024 4:00 AM ENTRANCE GUARD) Anatomical Region Laterality Modality Other 05/27/2024 4:00 AM ENTRANCE GUARD Narrative 05/31/2024 7:23 PM ENTRANCE GUARD Interpretation Summary: Battery and Leads (BL) Normal parameters noted on battery and lead(s) --- 3.4 years remaining (this is an estimate based on prior usage) Presenting Rhythm (TN) Atrial Sensing-BiVentricular Pacing (-BiVP) --- rate 80 Arrhythmic events (AE) No new arrhythmic events in monitoring period Transmission Information (TI) Device Summary Report Procedure Note Cj Ellis MD - 05/31/2024 Interpretation Summary: Battery and Leads (BL) Normal parameters noted on battery and lead(s) --- 3.4 years remaining(this is an estimate based on prior usage) Presenting Rhythm (TN) Atrial Sensing-BiVentricular Pacing (-BiVP) --- rate 80 Arrhythmic events (AE) No new arrhythmic events in monitoring period Transmission Information (TI) Device Summary Report Cj Ellis MD [facility] CARDIAC SERVICES PRO CEDURES Final Result * DEVICE CHECK - IN OFFICE (04/22/2024 7:56 AM ENTRANCE GUARD) Anatomical Region Laterality Modality Other 04/22/2024 2:00 AM ENTRANCE GUARD Narrative 05/24/2024 11:16 AM ENTRANCE GUARD Interpretation Summary: Battery and Leads (BL) Normal parameters noted on battery and lead(s) --- Estimated battery longevity 3.5 years. Charge time 9.8 seconds. Presenting Rhythm (TN) Atrial Sensing-BiVentricular Pacing (-BiVP) --- /BiVP 77 bpm. Underlying /VS NSR 78 bpm Transmission Information (TI) Device Summary Report Procedure Note Cj Ellis MD - 05/24/2024 Interpretation Summary: Battery and Leads (BL) Normal parameters noted on battery and lead(s) --- Estimated batterylongevity 3.5 years. Charge time 9.8 seconds. Presenting Rhythm (TN) Atrial Sensing-BiVentricular Pacing (-BiVP) --- /BiVP 77 bpm.Underlying /VS NSR 78 bpm Transmission Information (TI) Device Summary Report us Cj Ellis MD CV CARDIAC SERVICES PRO CEDURES Final Result from Last 3 Months Insurance [facility] Advance Directives For more information, please contact: [phone] * Full Code (Latest Code Status on File) Date Activated Date Inactivated Comments 11/01/2019 9:06 PM 11/02/2019 6:56 PM Care Teams Trailers And Motor Homes Salesperson Relationship Specialty Start Date End Date No, Physician PCP - General 09/27/19
--- OUTSIDE RECORDS SUMMARY | 2024-07-01 07:30 | XMS_ITS | CONTINUITY OF CARE DOCUMENT ---
Author Name lluvia teixeira Address Unknown Organization [facility] Address [id number] [place] [address] [address] [place] [address] Phone [phone] Care Team Providers Care Geothermal Installer Name Role Phone SRI QUIROGA MD Unavailable SRI QUIROGA MD Unavailable INSURANCE PROVIDERS Payer name Policy type / Coverage type [employer]ILY [employer] Medicaid 1 [id number]
[2024-07-01 07:55] VITALS: PULSE 74; O2SAT 91
[2024-07-01 08:00] VITALS: PULSE 99; O2SAT 84
[2024-07-01 08:05] VITALS: PULSE 100; O2SAT 86
[2024-07-01 08:10] VITALS: PULSE 99; O2SAT 88
[2024-07-01 08:15] VITALS: PULSE 101; O2SAT 92
[2024-07-01 08:25] VITALS: PULSE 74; O2SAT 92
--- NOTE | 2024-07-01 08:25 | HOMEO2EVAL ---
Evaluation was performed at [facility] Home Oxygen Evaluation RC: Home Oxygen (O2) Evaluation Start: 07/01/24 08:22 Freq: Status: Active Protocol: RPE Activity Type Activity Date Activity User E-sign Co-sign Detail Recorded Client Recorded Date Recorded By Document 07/01/24 07:55 [email or web address] [email or web address] 07/01/24 08:25 DJO Document 07/01/24 08:00 [email or web address] [email or web address] 07/01/24 08:25 DJO Document 07/01/24 08:05 [email or web address] [email or web address] 07/01/24 08:25 DJO Document 07/01/24 08:10 [email or web address] [email or web address] 07/01/24 08:25 DJO Document 07/01/24 08:15 [email or web address] [email or web address] 07/01/24 08:25 DJO Document 07/01/24 08:25 [email or web address] [email or web address] 07/01/24 08:25 DJO 07/01/24 07/01/24 07/01/24 07:55 08:00 08:05 Home O2 Evaluation [Oxygen] -Test Phase Resting Exercise Exercise -Oxygen Delivery Room Air Room Air Nasal Cannula -Oxygen Flow Rate (L/min) 1 [Pulse Oximetry] -Pulse Oximetry (90-100 %) 91 84 L 86 L [Pulse Rate] -Pulse Rate (60-100 beats/min) 74 99 100 [Evaluation] -Activity Tolerance [Exercise] -Ambulation Distance (feet) -Ambulation Distance (meters) [Charges] -Evaluation Charges O2 Evaluation by Pulmonary 07/01/24 07/01/24 07/01/24 08:10 08:15 08:25 Home O2 Evaluation [Oxygen] -Test Phase Exercise Exercise Resting -Oxygen Delivery Nasal Cannula Nasal Cannula Room Air -Oxygen Flow Rate (L/min) 2 3 [Pulse Oximetry] -Pulse Oximetry (90-100 %) 88 L 92 92 [Pulse Rate] -Pulse Rate (60-100 beats/min) 99 101 H 74 [Evaluation] -Activity Tolerance Good [Exercise] -Ambulation Distance (feet) 600 -Ambulation Distance (meters) 182.87 [Charges] -Evaluation Charges
== END 2024-07-01 07:26 | disposition home or self-care (01) ==
LOC: ANHPFT 07:27
PROVIDERS: PCP Internal Medicine Gastroenterology; Visit Provider Nurse Practitioner Family
DX: R91.8 Other nonspecific abnormal finding of lung field (principal)
CPT/HCPCS: 94618